=== PATIENT | male | born 1985 | race Caucasian/White ===

== ENCOUNTER 2021-03-24 13:22 | Emergency (ER) | payer OTHER ==
[~2021-03-24 13:22] MED LIST: EMTRIVA200 MG PO; ISENTRESS400 MG PO; VIREAD 300 MG300 MG PO
[2021-03-24 14:40] LABS: HEMOGLOBIN 13.2 gm/dl (14.0-17.5); RED BLOOD COUNT 4.44 M/UL (4.20-5.50); WHITE BLOOD COUNT 6.9 K/UL (4.5-11.0)
[2021-03-24 15:17] LABS: BUN/CREATININE RATIO 15 (0-10)
== END 2021-03-24 16:09 | disposition home or self-care (01) ==
LOC: ER1 13:22
PROVIDERS: Physician Assistant Medical
DX: Z71.1 Person with feared health complaint in whom no diagnosis is made (principal); F11.11 Opioid abuse, in remission; F17.210 Nicotine dependence, cigarettes, uncomplicated; Z86.19 Personal history of other infectious and parasitic diseases
CPT/HCPCS: 80053; 85025; 85610; 85730; 99284